=== PATIENT | male | born 1990 | race Caucasian/White ===

== ENCOUNTER 2018-08-13 21:45 | Emergency (ER) | payer SELFPAY ==
--- NOTE | 2018-08-13 22:45 | NUR ---
PATIENT WAS CALLED TO BE TRIAGED. PATIENT WAS NOT PRESENT IN WAITING ROOM.
--- NOTE | 2018-08-13 23:14 | NUR ---
PATIENT WAS NOT SEEN BY [facility] OR TRIAGED
== END 2018-08-13 23:16 | disposition left against medical advice (07) ==
LOC: ER 21:47
DX: Z53.21 Procedure and treatment not carried out due to patient leaving prior to being seen by health care provider (principal)